=== PATIENT | male | born 1980 | race Caucasian/White ===

== ENCOUNTER 2023-12-11 08:17 | Inpatient (IN) | payer SELFPAY ==
[2023-12-11] MEDS ORDERED: fentaNYL (PF) 50 MCG/ML 2 ML AMP ONE (08:23)
[2023-12-11] MEDS ORDERED: HEPARIN SODIUM 1,000 UN/ML (10ML VL) ONE (08:23)
--- NOTE | 2023-12-11 08:30 | ED ---
Chest Pain HPI - General Stated Complaint: Stemi Source: RN notes reviewed, old records reviewed Mode of arrival: ambulatory Limitations: no limitations - History of Present Illness Initial Comments: This is a 43-year-old male to the ER for evaluation patient [facility] for evaluation of chest pain. Patient had chest pain last night again today with severe chest pain anterior chest pain he had left-sided evaluate reflex today it feels like heaviness and pressure. Patient does smoke, history of high blood pressure without diabetes. Patient's pain is persistent here in the emergency department but improved from when it initially onset MD Complaint: chest pain, other (Dyspnea) -: days(s) Onset: during rest, during exertion Pain Location: substernal, left chest Pain Radiation: LUE, jaw/teeth Severity: moderate Severity scale (1-10): 4 Quality: tightness Consistency: constant Improves With: nothing Worsens With: nothing Anginal Symptoms: sense of impending doom Other Symptoms: palpitations Treatments Prior to Arrival: none - Related Data Home Medications Medication Instructions Recorded Confirmed Magnesium(Unknown Dose) 2 cap PO HS 12/11/23 12/11/23 Previous Rx's Medication Instructions Recorded Aspirin 81 mg PO DAILY #90 tab 12/13/23 Atorvastatin [Lipitor] 80 mg PO HS #90 tab 12/13/23 Metoprolol Tartrate [Lopressor] 25 mg PO BID #120 tab 12/13/23 Ticagrelor [Brilinta] 90 mg PO BID #120 tab 12/13/23 Allergies Allergy/AdvReac Type Severity Reaction Status Date / Time No Known Allergies Allergy Verified 12/11/23 12:29 Review of Systems ROS Statement: Those systems with pertinent positive or pertinent negative responses have been documented in the HPI. ROS Other: All systems not noted in ROS Statement are negative. EKG Findings - EKG Comments: EKG Findings:: EKG is sinus bradycardia 49 RI 136 QRS [address] elevation in 3 and aVF - EKG Results: EKG: interpreted by ERMD General Exam General appearance: alert, in no apparent distress, anxious Head exam: Present: atraumatic, normocephalic, normal inspection Eye exam: Present: normal appearance, PERRL, EOMI. Absent: scleral icterus, conjunctival injection, periorbital swelling ENT exam: Present: normal exam, mucous membranes moist Neck exam: Present: normal inspection. Absent: tenderness, meningismus, lymphadenopathy Respiratory exam: Present: normal lung sounds bilaterally. Absent: respiratory distress, wheezes, rales, rhonchi, stridor Cardiovascular Exam: Present: normal rhythm, bradycardia, normal heart sounds. Absent: systolic murmur, diastolic murmur, rubs, gallop, clicks GI/Abdominal exam: Present: soft, normal bowel sounds. Absent: distended, tenderness, guarding, rebound, rigid Extremities exam: Present: normal inspection, full ROM, normal capillary refill. Absent: tenderness, pedal edema, joint swelling, calf tenderness Back exam: Present: normal inspection Neurological exam: Present: alert, oriented X3, CN II-XII intact Psychiatric exam: Present: normal affect, normal mood Skin exam: Present: warm, dry, intact, normal color. Absent: rash Course - Reevaluation(s) Reevaluation #1: 12/11/23 08:28 Medical records reviewed 12/11/23 08:28 STEMI alert was paged prehospital Reevaluation #2: 12/11/23 08:28 Patient symptoms improved Reevaluation #3: 12/11/23 08:28 Patient informed of results and questions answered Reevaluation #4: Was pt. sent in by a medical professional or institution (, PA, MANAGER TAX, urgent care, hospital, or long term...) When possible be specific @ -no Did you speak to anyone other than the patient for history (EMS, parent, family, police, friend...)? What history was obtained from this source @ -no Did you review nursing and triage notes (agree or disagree)? Why? @ -agree Are old charts reviewed (outside hosp., previous admission, EMS record, old EKG, old radiological studies, urgent care reports/EKG's, long term records)? Report findings @ -yes Differential Diagnosis (chest pain, altered mental status, abdominal pain women, abdominal pain men, vaginal bleeding, weakness, fever, dyspnea, syncope, headache, dizziness, GI bleed, back pain, seizure, CVA, palpatations, mental health, musculoskeletal)? @ -prior EKG interpreted by me (3pts min.). @ -yes X-rays interpreted by me (1pt min.). @ -yes negative for acute disease CT interpreted by me (1pt min.). @ -no U/S interpreted by me (1pt. min.). @ -no What testing was considered but not performed or refused? (CT, X-rays, U/S, labs)? Why? @ -none What meds were considered but not given or refused? Why? @ -none Did you discuss the management of the patient with other professionals (professionals i.e. , PA, MANAGER TAX, lab, RT, psych nurse, social welfare administrator, watch repair person, teacher, motorcycle police officer, rehabilitation case coordinator)? Give summary @ -no Was smoking cessation discussed for >3mins.? @ -no Were there social determinants of health that impacted care today? How? (Home lessness, low income, unemployed, alcoholism, drug addiction, transportation, low edu. Level, literacy, decrease access to med. care, [place], rehab)? @ -none Was there de-escalation of care discussed even if they declined (Discuss DNR or withdrawal of care, Hospice)? DNR status @ -no What co-morbidities impacted this encounter? (DM, HTN, Smoking, COPD, CAD, Cancer, CVA, ARF, Chemo, Hep., AIDS, mental health diagnosis, sleep apnea, morbid obesity)? @ -none Was patient admitted / discharged? Hospital course, mention meds given and route, prescriptions, significant lab abnormalities, going to OR and other pertinent info. @ - [address] elevation LA, patient had chest pain starting last night to his chest and jaw, recurrent chest pain today with ST changes on his EKG will admit to the Associate Store Manager for cardiology to see Admitted Was critical care preformed (if so, how long)? @ -yes31 Undiagnosed new problem with uncertain prognosis? @ -no Drug Therapy requiring intensive monitoring for toxicity (Heparin, Nitro, Insulin, Cardizem)? @ -no Were any procedures done? @ -no Diagnosis/symptom? @ -STEMI Acute, or Chronic, or Acute on Chronic? @ -Acute Uncomplicated (without systemic symptoms) or Complicated (systemic symptoms)? @ -Complicated Side effects of treatment? @ -no Exacerbation, Progression, or Severe Exacerbation? @ -exacerbation Poses a threat to life or bodily function? How? (Chest pain, USA, LA, pneumonia, PE, COPD, DKA, ARF, appy, cholecystitis, CVA, Diverticulitis, Homicidal, Suicidal, threat to staff... and all critical care pts) @ -yes with STEMI Reevaluation #5: Differential Chest Pain: Stable Angina, Unstable Angina, STEMI, NSTEMI Aortic Dissection, Pneumothorax, Musculoskeletal, Esophageal Spasm GERD, Cholecystitis, Pancreatitis, Zoster, this is not meant to be an all-inclusive list. - Consultations Consultation #1: Dr. Butler is at bedside evaluating patient Consultation #2: Spoke with sound who will admit this patient Chest Pain MDM - MDM [address] elevation LA, patient had chest pain starting last night to his chest and jaw, recurrent chest pain today with ST changes on his EKG will admit to the Associate Store Manager for cardiology to see Critical Care Time Critical Care Time: Yes Total Critical Care Time: 31 Disposition Clinical Impression: STEMI (ST elevation myocardial infarction) Disposition: ADMITTED IP TO THIS HOSP Condition: Critical Is patient prescribed a controlled substance at d/c from ED?: No Time of Disposition: 08:45
[2023-12-11] MEDS: HEPARIN SODIUM 1,000 UN/ML (10ML VL) IV ONE (08:31)
--- NOTE | 2023-12-11 08:39 | XR ---
EXAMINATION TYPE: XR chest 1V portable DATE OF EXAM: 12/11/2023 Comparison: None Clinical History: 43-year-old male with chest pain Findings: The heart appears mildly enlarged. This may in part relate to large body habitus and magnification fr om AP technique. No consolidation or pleural effusion. Impression: Possible mild cardiomegaly versus appearance due to magnification related to AP technique and body parham bitus. Clinically correlate. Otherwise, no acute process seen.
[2023-12-11] MEDS: LIDOCAINE 1% INJ 10MG/ML (20 ML MDV) SQ ONE (08:51)
[2023-12-11] MEDS: SODIUM CHLORIDE 0.9% 1,000 ML IV ONE (08:54)
[2023-12-11] MEDS: MIDAZOLAM 2 MG/2 ML VIAL IVP ONE (08:55)
[2023-12-11] MEDS: fentaNYL (PF) 50 MCG/ML 2 ML AMP IVP ONE (08:55)
[2023-12-11] MEDS: VERAPAMIL SYRINGE (5 MG/10 ML) INTRAARTER ONE (08:56)
[2023-12-11] MEDS: HEPARIN SODIUM 1,000 UN/ML (10ML VL) IVP ONE (09:00)
[2023-12-11] MEDS ORDERED: METOPROLOL TARTRATE 25 MG TAB PO SCH (09:00)
[2023-12-11] MEDS ORDERED: ATORVASTATIN 80 MG TAB PO SCH (09:00)
[2023-12-11] MEDS ORDERED: TICAGRELOR 90 MG TAB ONE (09:04)
[2023-12-11 09:06] LABS: Basophils % (A) 0 %; Eosinophils # (A) 0.1 k/uL (0-0.7); Eosinophils % (A) 1 %; HCT 43.2 % (39.0-53.0); HGB 14.3 gm/dL (13.0-17.5); Lymphocytes # (A) 0.9 k/uL (1.0-4.8); Lymphocytes % (A) 5 %; MCH 29.1 pg (25.0-35.0); Mean Platelet Volume 7.9; Monocytes # (A) 0.6 k/uL (0-1.0); Monocytes % (A) 3 %; Neutrophils # (A) 17.1 k/uL (1.3-7.7); Neutrophils % (A) 91 %; Platelet Count 373 k/uL (150-450); RBC 4.91 m/uL (4.30-5.90); RDW 14.2 % (11.5-15.5); WBC 18.9 k/uL (3.8-10.6)
[2023-12-11] MEDS: TICAGRELOR 90 MG TAB PO ONE (09:07)
[2023-12-11 09:12] LABS: INR 0.9 (<1.2); Partial Thromboplastin Time 24.6 sec (22.0-30.0); Prothrombin Time 10.5 sec (10.0-12.5)
[2023-12-11 09:18] LABS: ALT 57 U/L (4-49); AST 109 U/L (17-59); African American GFR (CKD) >90 (>60 ml/min/1.73 sqM); Albumin 4.7 g/dL (3.5-5.0); Alkaline Phosphatase 66 U/L (38-126); Anion Gap 12 mmol/L; Blood Urea Nitrogen 12 mg/dL (9-20); Calcium 9.5 mg/dL (8.4-10.2); Carbon Dioxide 20 mmol/L (22-30); Chloride 102 mmol/L (98-107); Glucose 138 mg/dL (74-99); Magnesium 1.7 mg/dL (1.6-2.3); Non-African American GFR(CKD) >90 (>60 ml/min/1.73 sqM); Phosphorus 3.7 mg/dL (2.5-4.5); Potassium 4.8 mmol/L (3.5-5.1); Sodium 134 mmol/L (137-145); Total Bilirubin 0.6 mg/dL (0.2-1.3)
[2023-12-11] MEDS ORDERED: niCARdipine 25 MG/10 ML VIAL ONE (09:23)
[2023-12-11 09:26] LABS: NT-Pro-B-Type Natriuretic Pept 201 pg/mL
[2023-12-11] MEDS: PHENYLEPHRINE-0.9% NACL SYG 1,000 MCG/10 ML SYRINGE IVP ONE (09:27)
[2023-12-11] MEDS: niCARdipine Syringe (1,000 mcg/10 mL) INTRACORON ONE (09:28)
[2023-12-11] MEDS: IOPAMIDOL-370 100ML BTL INJ ONE (09:29)
[2023-12-11] MEDS ORDERED: RX INFO: IV CONTRAST WAS GIVEN 1 EACH MISC MISCELLANE PRN (09:33)
[2023-12-11] MEDS ORDERED: ATROPINE SULFATE 0.1 MG/ML 10ML SYRINGE IV PRN (09:33)
[2023-12-11] MEDS ORDERED: ZOLPIDEM 5 MG TAB PO PRN (09:33)
[2023-12-11] MEDS ORDERED: MAG HYDROX/AL HYDROX/SIMETH 30 ML CUP PO PRN (09:33)
[2023-12-11] MEDS ORDERED: NITROGLYCERIN SL TABS 0.4 MG TAB SUBLINGUAL PRN (09:33)
--- NOTE | 2023-12-11 09:40 | P.PCN ---
Date of Procedure: 12/11/23 Operative Findings: CARDIAC CATHETERIZATION AND PERCUTANEOUS CORONARY INTERVENTION PERFORMING PHYSICIAN: Barry Ayoub MD, [facility] PROCEDURE PERFORMED: 1. Selective right and left coronary angiogram 2. Left heart catheterization 3. Successful stenting of distal RCA using 3.5 x 28 mm Xience CHIP with an ex cellent angiographic results adjunctive use of intravascular imaging and aspiration thrombectomy 4. Ultrasound-guided access of the right radial artery INDICATION: Acute inferior ST elevation myocardial infarction COMPLICATION: None APPROACH: Right radial artery LEVEL OF SEDATION: Moderate with the sedation time off 38 minutes PROCEDURE DESCRIPTION: After obtaining informed consent the patient was brought to the cardiac Rat Culturist. The right radial artery was cannulated using micropuncture technique under ultrasound guidance and micropuncture wire passed easily then I placed a 6 [place] 11 cm sheath at the right radial artery. I gave the patient 2 mg of verapamil intra-arterial and 5000's of heparin intravenous. Selective right and left coronary angiogram performed using JR4 and JL 3.5 catheter. Left heart catheterization was performed using the JR4 catheter which crossed the aortic valve. After that I did intervene on the RCA. Anticoagulation was initiated and continued using heparin with continuous ACT monitoring. Subsequently I did engage using JR4 guiding catheter. I did wired using a run-through wire. After that I did aspiration thrombectomy with removal of red thrombus. Intravascular ultrasound was performed and showed a distal RCA diameter around 3 mm and proximal to the lesion was about 5 mm. I did predilatation using 3 mm balloon before I deployed 3.5 x 28 mm stent which was postdilated proximally using 4.5 mm balloon and in the mid using 4 mm balloon and distally using 4 mm balloon as well. Final angiogram showed excellent angiographic results with HUNG-3 flow and the procedure was completed with no complication SELECTIVE CORONARY ANGIOGRAM: The right coronary artery: Large-caliber vessel and a dominant vessel and appears to be occluded distally with a large thrombus burden Left main: Is angiographically normal The left circumflex: Large-caliber vessel nondominant vessel appears to be normal and gives rise into first and second obtuse marginal branches The left anterior descending artery: Large-caliber vessel. The mid LAD has a lesion appears to be in the range of 40%. The LAD gives rise into multiple diagonal branches appear to be normal HEMODYNAMICS: The LVEDP was 24 mmHg with no significant gradient across aortic valve CONCLUSION: Occluded distal RCA. I performed successful PCI of the RCA Intermediate disease involving the mid LAD Elevated left-sided filling pressure POSTPROCEDURE MANAGEMENT: 1. Dual antiplatelet therapy using aspirin and Brilinta for 12 month 2. Aggressive cholesterol control 3. Follow-up with the patient
--- NOTE | 2023-12-11 09:42 | P.CRDCN ---
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 He has been experiencing discomfort since last night. The discomfort was a pressure/burning sensation in the middle of the chest with some radiation to the neck. He was brought to the emergency department by ambulance after an EKG was performed and showed inferior ST elevation myocardial infarction and subsequently patient underwent a heart catheterization and was found to have occluded RCA in the distal portion where he underwent PCI of the RCA. The procedure was performed with no complication. The left coronary system has intermediate disease involving the LAD. The p atient will be admitted to the intensive care unit. He has hypertension and dyslipidemia and he is overweight. He was informed in the past that he has coronary artery disease based on heart catheterization was performed in [place] several years ago but no stent was needed at that point because the disease was not significant. The physical examination is remarkable for regular rhythm with a soft systolic murmur and clear breathing sounds bilaterally and no carotid bruit and no edema was noted. Vitals are stable Assessment Inferior STEMI Status post PCI of the RCA Multiple comorbid conditions including obesity and hypertension and dyslipidemia Plan The patient will be admitted to the intensive care unit Dual antiplatelet therapy and high intensity statin Echocardiogram Follow-up with the patient Medications and Allergies Allergies Allergy/AdvReac Type Severity Reaction Status Date / Time No Known Allergies Allergy Verified 12/11/23 08:59 Physical Exam Vitals: Vital Signs Temp Pulse Resp BP Pulse Ox 12/11/23 08:58 99.1 F 82 18 116/80 98 Intake and Output 12/10/23 12/11/23 12/11/23 22:59 06:59 14:59 Intake Total 225 Balance 225 Intake: IV 225 Results 12/11/23 08:45 12/11/23 08:45 Cardiac Enzymes 12/11/23 12/11/23 Range/Units 08:45 08:45 AST 109 H (17-59) U/L Troponin I 5.420 H* (0.000-0.034) ng/mL Coagulation 12/11/23 Range/Units 08:45 PT 10.5 (10.0-12.5) sec APTT 24.6 (22.0-30.0) sec CBC 12/11/23 Range/Units 08:45 WBC 18.9 H (3.8-10.6) k/uL RBC 4.91 (4.30-5.90) m/uL Hgb 14.3 (13.0-17.5) gm/dL Hct 43.2 (39.0-53.0) % Plt Count 373 (150-450) k/uL Comprehensive Metabolic Panel 12/11/23 Range/Units 08:45 Sodium 134 L (137-145) mmol/L Potassium 4.8 (3.5-5.1) mmol/L Chloride 102 (98-107) mmol/L Carbon Dioxide 20 L (22-30) mmol/L BUN 12 (9-20) mg/dL Creatinine 0.66 (0.66-1.25) mg/dL Glucose 138 H (74-99) mg/dL Calcium 9.5 (8.4-10.2) mg/dL AST 109 H (17-59) U/L ALT 57 H (4-49) U/L Alkaline Phosphatase 66 (38-126) U/L Total Protein 7.0 (6.3-8.2) g/dL Albumin 4.7 (3.5-5.0) g/dL Current Medications Generic Name Dose Route Start Last Admin Trade Name Freq PRN Reason Stop Dose Admin Al Hydroxide/Mg Hydroxide 30 ml 12/11/23 09:33 Mag Hydrox/Al Hydrox/Simeth 30 Ml Cup PO Q4HR PRN Heartburn Aspirin 81 mg 12/12/23 09:00 Aspirin 81 Mg PO DAILY [facility] Atorvastatin Calcium 80 mg 12/11/23 21:00 Atorvastatin 80 Mg Tab PO HS [facility] Atropine Sulfate 0.5 mg 12/11/23 09:33 Atropine Sulfate 0.1 Mg/Ml 10ml Syringe IV ONCE PRN Symptomatic Bradycardia Heparin Sodium/Sodium Chloride 250 mls @ 0 mls/hr 12/11/23 08:30 25,000 unit/ Sodium Chloride IV .Q0M [facility] Protocol 12 UNITS/KG/HR Sodium Chloride 1,000 ml/ IV 1,000 mls @ 75 mls/hr 12/11/23 09:45 Solution IV 12/11/23 14:46 .[id number] [facility] Metoprolol Tartrate 25 mg 12/11/23 21:00 Metoprolol Tartrate 25 Mg Tab PO BID [facility] Miscellaneous Information 1 each 12/11/23 09:33 Rx Info: Iv Contrast Was Given 1 Each Misc MISCELLANE 12/13/23 09:34 DAILY PRN Per Protocol Nitroglycerin 0.4 mg 12/11/23 09:33 Nitroglycerin Sl Tabs 0.4 Mg Tab SUBLINGUAL Q5M PRN Chest Pain Ticagrelor 90 mg 12/11/23 21:00 Ticagrelor 90 Mg Tab PO BID [facility] Protocol Zolpidem Tartrate 5 mg 12/11/23 09:33 Zolpidem 5 Mg Tab PO HS PRN Insomnia Intake and Output 12/10/23 12/11/23 12/11/23 22:59 06:59 14:59 Intake Total 225 Balance 225 Intake: IV 225 12/11/23 08:45 12/11/23 08:45
[2023-12-11] MEDS: SODIUM CHLORIDE 0.9% 1,000 ML in EMPTY BAG 1 BAG IV SCH (10:00)
[2023-12-11 10:12] LABS: Glucose,Whole Blood 114 mg/dL (70-110)
[2023-12-11] MEDS: SODIUM CHLORIDE 0.9% 1,000 ML IV STA (11:27)
[2023-12-11] MEDS: HEPARIN SOD,PORK IN 0.45% NACL 25,000 UNIT in 0.45% NACL 1 250ML.BAG IV SCH (14:26)
[2023-12-11] MEDS: ONDANSETRON 4 MG/2 ML VIAL IVP PRN (14:30)
--- NOTE | 2023-12-11 15:19 | P.HPIM ---
History of Present Illness H&P Date: 12/11/23 Patient is a 43-year-old male with history of nonobstructive CAD, dyslipidemia presenting with chest pain. Patient arrived as a code STEMI. He claims that he started having reflux/burning sensation last night, and it persisted this morning. He also has shortness of breath associated with that. He also noted some radiating pain down to his fingertips bilaterally. He denies any palpita tions. Has some nausea. All of his symptoms have resolved since heart cath. Continues to smoke more than 1 pack/day. Occasional alcohol use, denies any illicit drug use. In the ED, vital signs within normal limits. EKG on presentation independently interpreted, showed ST elevation in inferior and lateral leads, T wave inversions in inferior leads. Chest x-ray independently interpreted, no o pacities noted. During catheterization, found to have occluded distal RCA with successful PCI and stent placement. Intermediate disease involving mid LAD also noted, elevated left-sided filling pressures noted. Patient currently recovering in medical ICU. Pertinent positives and negatives as discussed in HPI, a complete review of systems was performed and all other systems are negative. Patient seen and examined at bedside. Vital signs reviewed General: nontoxic, no distress, appears at stated age Derm: warm, dry Head: atraumatic, normocephalic, symmetric Eyes: EOMI, no lid lag, anicteric sclera, pupils equal round reactive to light ENT: Nose and ears atraumatic Neck: No thyromegaly, supple Mouth: no lip lesion, mucus membranes moist Cardiovascular: S1S2 reg, no murmur, no edema Lungs: clear to auscultation bilateral, no rhonchi, no rales, no wheeze, no accessory muscle use Abdominal: soft, nontender to palpation, no guarding, no appreciable organomegaly Ext: no gross muscle atrophy, muscle strength muscle strength 5 out of 5 in all 4 extremities, no contractures Neuro: CN II-XII grossly intact Psych: Alert, oriented, appropriate affect Assessment/Plan: Acute inferior STEMI status post PCI and stent to distal RCA History of dyslipidemia -Cardiology note reviewed, aspirin 81 mg, Brilinta 90 mg twice daily, atorvastatin 80 mg daily -Also started on metoprolol 25 twice daily -Echocardiogram pending -Continue telemetry monitoring Nicotine dependence -Counseled regarding smoking cessation The patient is admitted with an anticipated greater than 2 midnight stay as inpatient status for evaluation of STEMI. CODE STATUS: Full code DVT prophylaxis: Heparin Anticipated discharge date: Pending clinical course Anticipated discharge place: Pending clinical course A total of 55 minutes was spent on the care of this complex patient more than 50% of the time was spent in counseling and care coordination. Medications and Allergies Home Medications Medication Instructions Recorded Confirmed Type Aspirin EC [Ecotrin Low Dose] 81 mg PO HS 12/11/23 12/11/23 History Atorvastatin Calcium [Lipitor] 40 mg PO HS 12/11/23 12/11/23 History Magnesium(Unknown Dose) 2 cap PO HS 12/11/23 12/11/23 History Allergies Allergy/AdvReac Type Severity Reaction Status Date / Time No Known Allergies Allergy Verified 12/11/23 12:29 Physical Exam Vitals: Vital Signs Temp Pulse Resp BP Pulse Ox 12/11/23 14:30 54 L 13 130/73 97 12/11/23 14:15 53 L 24 97 12/11/23 14:00 54 L 16 118/89 95 12/11/23 13:45 63 12 96 12/11/23 13:30 53 L 14 96 12/11/23 13:15 55 L 12 97 12/11/23 13:00 55 L 12 122/66 97 12/11/23 12:45 53 L 16 95 12/11/23 12:30 55 L 14 96 12/11/23 12:15 54 L 12 95 12/11/23 12:00 98.5 F 56 L 14 118/65 93 L 12/11/23 11:45 24 99 12/11/23 11:30 53 L 16 96 12/11/23 11:15 58 L 17 94 L 12/11/23 11:00 60 24 88/74 96 12/11/23 10:45 51 L 23 97 12/11/23 10:30 57 L 20 96 12/11/23 10:15 53 L 14 96 12/11/23 10:04 57 L 14 95 12/11/23 08:58 99.1 F 82 18 116/80 98 Intake and Output 12/10/23 12/11/23 12/11/23 22:59 06:59 14:59 Intake Total 225 Balance 225 Intake: IV 225 Other: Voiding Method Urinal Weight 127.886 kg Results CBC & Chem 7: 12/11/23 08:45 12/11/23 08:45 Labs: Abnormal Lab Results - Last 24 Hours (Table) 12/11/23 12/11/23 12/11/23 Range/Units 08:45 08:45 08:45 WBC 18.9 H (3.8-10.6) k/uL Neutrophils # 17.1 H (1.3-7.7) k/uL Lymphocytes # 0.9 L (1.0-4.8) k/uL APTT (22.0-30.0) sec Sodium 134 L (137-145) mmol/L Carbon Dioxide 20 L (22-30) mmol/L Glucose 138 H (74-99) mg/dL POC Glucose (mg/dL) (70-110) mg/dL AST 109 H (17-59) U/L ALT 57 H (4-49) U/L Troponin I 5.420 H* (0.000-0.034) ng/mL 12/11/23 12/11/23 12/11/23 Range/Units 10:10 10:48 10:48 WBC (3.8-10.6) k/uL Neutrophils # (1.3-7.7) k/uL Lymphocytes # (1.0-4.8) k/uL APTT 47.2 H (22.0-30.0) sec Sodium (137-145) mmol/L Carbon Dioxide (22-30) mmol/L Glucose (74-99) mg/dL POC Glucose (mg/dL) 114 H (70-110) mg/dL AST (17-59) U/L ALT (4-49) U/L Troponin I 120.000 H* (0.000-0.034) ng/mL
[2023-12-11] MEDS: HEPARIN SODIUM,PORCINE 5,000 UNIT/ML 1 ML VIAL SQ SCH (16:03)
--- NOTE | 2023-12-11 17:48 | CA ---
Transthoracic Echo Report Name: Cachorro Gomes Age: 43 Gender: M : 1980 Exam Date: 12/11/2023 13:15 Exam Location: [place] [facility] Ht (in): 68 Wt (lb): 282 Ordering Physician: Barry Ayoub MD ([id number]) Attending/Referring Phys: Twister Doffer Marcella Cuadra RDCS Procedure CPT: Indications: ACS Cardiac Hx: Technical Quality: Technically difficult study Contrast 1: Definity Total Dose (mL): 2 Contrast 2: Total Dose (mL): MEASUREMENTS (Male / Female) Normal Values 2D ECHO LV Diastolic Diameter PLAX 4.6 cm 4.2 - 5.9 / 3.9 - 5.3 cm LV Systolic Diameter PLAX 3.6 cm IVS Diastolic Thickness 0.9 cm 0.6 - 1.0 / 0.6 - 0.9 cm LVPW Diastolic Thickness 1.1 cm 0.6 - 1.0 / 0.6 - 0.9 cm LV Relative Wall Thickness 0.4 LVOT Diameter 1.9 cm LV Diastolic Volume MOD BP 153.8 cm??? 67 - 155 / 56 - 104 cm??? LV Systolic Volume MOD BP 60.4 cm??? 22 - 58 / 19 - 49 cm??? LV Ejection Fraction MOD BP 60.7 % >= 55 % LV Cardiac Index MOD BP 2094.2 cm???/min???m??? LV Diastolic Volume MOD 4C 160.6 cm??? LV Systolic Volume MOD 4C 64.7 cm??? LV Ejection Fraction MOD 4C 59.7 % LV Cardiac Index MOD 4C 2151.9 cm???/min???m??? LV Diastolic Length 4C 9.9 cm LV Systolic Length 4C 7.9 cm LV Diastolic Volume MOD 2C 137.6 cm??? LV Systolic Volume MOD 2C 54.2 cm??? LV Ejection Fraction MOD 2C 60.6 % LV Cardiac Index MOD 2C 1870.9 cm???/min???m??? LV Diastolic Length 2C 9.2 cm LV Systolic Length 2C 7.5 cm LA Volume 50.7 cm??? 18 - 58 / 22 - 52 cm??? LA Volume Index 20.0 cm???/m??? 16 - 28 cm???/m??? DOPPLER AV Peak Velocity 157.8 cm/s AV Peak Gradient 10.0 mmHg AV Mean Velocity 109.5 cm/s AV Mean Gradient 5.3 mmHg AV Velocity Time Integral 28.3 cm LVOT Peak Velocity 111.6 cm/s LVOT Peak Gradient 5.0 mmHg LVOT Velocity Time Integral 21.4 cm LVOT Stroke Volume 63.2 cm??? LVOT Stroke Volume Index 26.7 ml/m??? LVOT Cardiac Index 1417.6 cm???/min???m??? AV Area Cont Eq vti 2.2 cm??? AV Area Cont Eq pk 2.1 cm??? MV Area PHT 4.4 cm??? Mitral E Point Velocity 95.6 cm/s Mitral A Point Velocity 63.2 cm/s Mitral E to A Ratio 1.5 MV Deceleration Time 172.9 ms PV Peak Velocity 124.9 cm/s PV Peak Gradient 6.2 mmHg FINDINGS Left Ventricle Left ventricular ejection fraction is estimated at 55-60 %. Mildly increased left ventricular systolic volume. Left ventricular wall thickness normal. Apical septal, inferior, and mid inferior hypokinetic. Right Ventricle Normal right ventricular size and function. Unable to estimate the right ventricular systolic pressure. Right Atrium Normal right atrial size. Left Atrium Normal left atrial size. Mitral Valve Structurally normal mitral valve. No evidence for mitral valve prolapse. No mitral stenosis. Trace mitral regurgitation. Aortic Valve Aortic valve not well visualized, presumably trileaflet aortic valve. Tricuspid Valve Structurally normal tricuspid valve. No tricuspid stenosis. Trace tricuspid regurgitation. Pulmonic Valve Structurally normal pulmonic valve. No pulmonic stenosis. No pulmonic regurgitation. Pericardium No pericardial effusion. Aorta Aortic annulus normal. Ascending aorta not well visualized. CONCLUSIONS Preserved LV function Hypokinesis involving the apical septum and basal and mid inferior wall Previewed by: Dr. Chalo Rascon MD (Electronically Signed) Final Date: 11 December 2023 17:47
[2023-12-11] MEDS: NICOTINE 21MG/24HR PATCH TRANSDERM SCH (19:09)
[2023-12-11] MEDS: ATORVASTATIN 80 MG TAB PO SCH (21:09)
[2023-12-11] MEDS: METOPROLOL TARTRATE 25 MG TAB PO SCH (21:09)
[2023-12-11] MEDS: TICAGRELOR 90 MG TAB PO SCH (21:09)
[2023-12-12 06:55] LABS: Basophils % (A) 0 %; Eosinophils # (A) 0.1 k/uL (0-0.7); Eosinophils % (A) 1 %; HCT 38.5 % (39.0-53.0); HGB 12.3 gm/dL (13.0-17.5); Lymphocytes # (A) 1.5 k/uL (1.0-4.8); Lymphocytes % (A) 16 %; MCH 28.9 pg (25.0-35.0); MCV 90.3 fL (80.0-100.0); Mean Platelet Volume 7.8; Monocytes # (A) 0.8 k/uL (0-1.0); Monocytes % (A) 9 %; Neutrophils # (A) 7.1 k/uL (1.3-7.7); Neutrophils % (A) 74 %; Platelet Count 276 k/uL (150-450); RBC 4.26 m/uL (4.30-5.90); WBC 9.6 k/uL (3.8-10.6)
[2023-12-12 07:04] LABS: African American GFR (CKD) >90 (>60 ml/min/1.73 sqM); Anion Gap 2 mmol/L; Blood Urea Nitrogen 10 mg/dL (9-20); Calcium 8.7 mg/dL (8.4-10.2); Carbon Dioxide 25 mmol/L (22-30); Chloride 110 mmol/L (98-107); Glucose 115 mg/dL (74-99); Magnesium 2.2 mg/dL (1.6-2.3); Non-African American GFR(CKD) >90 (>60 ml/min/1.73 sqM); Potassium 4.2 mmol/L (3.5-5.1); Sodium 137 mmol/L (137-145)
[2023-12-12] MEDS: ASPIRIN 81 MG PO SCH (08:34)
[2023-12-12] MEDS ORDERED: ASPIRIN 325 MG TAB PO SCH (09:00)
--- NOTE | 2023-12-12 13:12 | P.PN ---
Subjective Progress Note Date: 12/12/23 Principal diagnosis: Inferior STEMI The patient is a pleasant 43-year-old gentleman with a past medical history significant for overweight and hypertension and dyslipidemia who was admitted to the hospital with chest discomfort and was diagnosed with inferior STEMI. He underwent an emergent heart catheterization and PCI of the RCA December 12, 2023 The patient was seen and evaluated this morning. He is asymptomatic and hemodynamically stable. The echo shows normal LV systolic function. He is on dual antiplatelet therapy along with high intensity statin. From the cardiovas cular standpoint of view, the patient can be transferred to 3 for possible discharge in the next 24 hours. The examination is remarkable for stable vital signs with regular rate and rhythm and clear breathing sounds bilaterally and no edema was noted Assessment Acute inferior STEMI Status post PCI of the RCA Multiple comorbid conditions Plan Continue the current medical regimen Continue dual antiplatelet therapy and high intensity statin Transfer to [facility]. Discharge in next 24 to 48 hours Objective - Vital Signs Vital signs: Vital Signs Temp 97.6 F 12/12/23 08:00 Pulse 63 12/12/23 10:00 Resp 25 H 12/12/23 10:00 BP 117/62 12/12/23 10:00 Pulse Ox 96 12/12/23 10:00 FiO2 Intake & Output 12/11/23 12/12/23 12/12/23 18:59 06:59 18:59 Intake Total 825 750 472 Output Total 1725 2100 0 Balance -900 -1350 472 Weight 127.886 kg 126.8 kg Intake: IV 225 Intake, IV Titration 600 300 Amount Sodium Chloride 0.9% 1, 600 300 000 ml In Empty Bag 1 bag @ 75 mls/hr IV .[id number] CARLOS A Rx#:[id number] Oral 450 472 Output: Urine 1725 2100 0 Other: Voiding Method Urinal Urinal Urinal # Voids 1 1 # Bowel Movements 0 1 - Labs CBC & Chem 7: 12/12/23 06:17 12/12/23 06:17 Labs: Abnormal Lab Results - Last 24 Hours (Table) 12/12/23 12/12/23 Range/Units 06:17 06:17 RBC 4.26 L (4.30-5.90) m/uL Hgb 12.3 L (13.0-17.5) gm/dL Hct 38.5 L (39.0-53.0) % Chloride 110 H (98-107) mmol/L Glucose 115 H (74-99) mg/dL
--- NOTE | 2023-12-12 14:00 | P.PN ---
Subjective Progress Note Date: 12/12/23 Hospital Course: 43-year-old male with history of nonobstructive CAD, dyslipidemia presenting w ith chest pain. In the ED, vital signs within normal limits. EKG on presentation independently interpreted, showed ST elevation in inferior and lateral leads, T wave inversions in inferior leads. Chest x-ray independently interpreted, no opacities noted. During catheterization, found to have occluded distal RCA with successful PCI and stent placement. Intermediate disease involving mid LAD also noted, elevated left-sided filling pressures noted. Patient currently recovering in medical ICU. Echocardiogram showed LVEF 55 to 60%, hypokinesis involving apical, basal, mid inferior wall. Likely discharge within the next 24 to 48 hours. Subjective: Patient seen and examined at bedside. No acute events overnight. Denies any further chest pain. Pertinent positives and negatives as discussed above, a complete review of systems was performed and all other systems are negative. Vitals Signs Reviewed. General: Nontoxic, no distress, appears at stated age, morbidly obese Derm: Warm, dry Head: Atraumatic, normocephalic, symmetric Eyes: EOMI, no lid lag, anicteric sclera Mouth: No lip lesion, mucus membranes moist Cardiovascular: S1S2 reg, no murmur Lungs: CTA bilateral, no rhonchi, no rales, no accessory muscle use Abdominal: Soft, nontender to palpation, no guarding, no appreciable organomegaly Ext: No gross muscle atrophy, no edema, no contractures Neuro: CN II-XI grossly intact, no focal neuro deficits Psych: Alert, oriented, appropriate affect Data Reviewed Today: Pertinent Labs: Hemoglobin 12.3, WBC 9.6, creatinine 0.84, troponin elevated to 120, magnesium 2.2 Imaging: EKG independently interpreted from this morning, shows Q waves in inferior leads. Sinus bradycardia. Assessment and Plan: Acute inferior STEMI status post PCI and stent to distal RCA History of dyslipidemia -Cardiology note reviewed, aspirin 81 mg, Brilinta 90 mg twice daily, atorvastatin 80 mg daily, metoprolol 25 twice daily -Likely discharge within the next 24 to 48 hours -Planning for transfer out of the ICU today -Continue telemetry monitoring Nicotine dependence -Counseled regarding smoking cessation DVT ppx: Heparin subcu Code status: Full code Anticipated discharge place: Pending clinical course Anticipated discharge time: Pending clinical course Objective - Vital Signs Vital signs: Vital Signs Temp 97.7 F 12/12/23 12:00 Pulse 69 12/12/23 12:00 Resp 25 H 12/12/23 12:00 BP 114/81 12/12/23 12:00 Pulse Ox 94 L 12/12/23 12:00 FiO2 Intake & Output 12/11/23 12/12/23 12/12/23 18:59 06:59 18:59 Intake Total 825 750 972 Output Total 1725 2100 0 Balance -900 -1350 972 Weight 127.886 kg 126.8 kg Intake: IV 225 Intake, IV Titration 600 300 Amount Sodium Chloride 0.9% 1, 600 300 000 ml In Empty Bag 1 bag @ 75 mls/hr IV .[id number] CARLOS A Rx#:[id number] Oral 450 972 Output: Urine 1725 2100 0 Other: Voiding Method Urinal Urinal Urinal # Voids 1 1 # Bowel Movements 0 1 - Labs CBC & Chem 7: 12/12/23 06:17 12/12/23 06:17 Labs: Abnormal Lab Results - Last 24 Hours (Table) 12/12/23 12/12/23 Range/Units 06:17 06:17 RBC 4.26 L (4.30-5.90) m/uL Hgb 12.3 L (13.0-17.5) gm/dL Hct 38.5 L (39.0-53.0) % Chloride 110 H (98-107) mmol/L Glucose 115 H (74-99) mg/dL
[2023-12-12 14:24] VITALS: BMI 42.5
--- NOTE | 2023-12-13 07:04 | P.PN ---
Subjective Progress Note Date: 12/13/23 Principal diagnosis: Inferior STEMI The patient is a pleasant 43-year-old gentleman with a past medical history significant for overweight and hypertension and dyslipidemia who was admitted to the hospital with chest discomfort and was diagnosed with inferior STEMI. He underwent an emergent heart catheterization and PCI of the RCA December 12, 2023 The patient was seen and evaluated this morning. He is asymptomatic and hemodynamically stable. The echo shows normal LV systolic function. He is on dual antiplatelet therapy along with high intensity statin. From the cardiovas cular standpoint of view, the patient can be transferred to [facility] for possible discharge in the next 24 hours. The examination is remarkable for stable vital signs with regular rate and rhythm and clear breathing sounds bilaterally and no edema was noted December 13, 2023 The patient was seen and evaluated this morning. He is asymptomatic and hemodynamically stable. He continues to be on dual antiplatelet therapy along with high intensity statin. From the cardiac standpoint of view, the patient c an be discharged home. The patient is [place] and he was advised to find a phlebotomist lab assistant in [place] to follow-up with him. We are going to give him a copy of the heart catheterization and PCI report to have it with him. The examination is remarkable for stable vital signs with regular rate and rhythm and clear breathing sounds bilaterally and no edema was noted Assessment Acute inferior STEMI Status post PCI of the RCA Multiple comorbid conditions Plan Continue the current medical regimen Continue dual antiplatelet therapy and high intensity statin The patient can be discharged Objective - Vital Signs Vital signs: Vital Signs Temp 98.6 F 12/13/23 04:00 Pulse 58 L 12/13/23 04:00 Resp 18 12/13/23 04:00 BP 114/78 12/13/23 05:00 Pulse Ox 95 12/13/23 04:00 FiO2 Intake & Output 12/12/23 12/13/23 12/13/23 18:59 06:59 18:59 Intake Total 972 Output Total 0 Balance 972 Weight 126.8 kg 127.6 kg Intake: Oral 972 Output: Urine 0 Other: Voiding Method Urinal Urinal # Voids 3 5 # Bowel Movements 1 - Labs CBC & Chem 7: 12/12/23 06:17 12/12/23 06:17 Labs: Abnormal Lab Results - Last 24 Hours (Table) 12/12/23 Range/Units 06:17 Chloride 110 H (98-107) mmol/L Glucose 115 H (74-99) mg/dL
[2023-12-13 08:44] VITALS: BP 110/56; PULSE 67; RESP 22; TEMP 98.2
--- NOTE | 2023-12-13 11:43 | P.DS ---
Providers Date of admission: 12/11/23 09:30 Expected date of discharge: 12/13/23 Attending physician: Isaac Cartagena MD Consults: 12/11/23 08:23 Consult Physician Urgent Consulting Provider: Barry Ayoub Consult Reason/Comments: stemi Do you want consulting provider notified?: Yes 12/11/23 09:34 Consult Physician Routine Consulting Provider: [facility] Consult Reason/Comments: Post Interventional patient Do you want consulting provider notified?: Already Contacted Primary care physician: Physician Nonstaff Hospital Course: Discharge Diagnosis: Acute inferior STEMI status post PCI and stent to distal RCA Dyslipidemia Nicotine dependence Morbid obesity Hospital Course: 43-year-old male with history of CAD, dyslipidemia presenting with chest pain. In the ED, vital signs within normal limits. EKG on presentation independently interpreted, showed ST elevation in inferior and lateral leads, T wave inversions in inferior leads. Chest x-ray independently interpreted, no opacities noted. During catheterization, found to have occluded distal RCA with successful PCI and stent placement. Intermediate disease involving mid LAD also noted, elevated left-sided filling pressures noted. Patient currently recovering in medical ICU. Echocardiogram showed LVEF 55 to 60%, hypokinesis involving apical, basal, mid inferior wall. 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 Patient seen and examined at bedside. Vital signs reviewed and stable. General: Nontoxic, no distress, appears at stated age, morbidly obese Derm: Warm, dry Head: Atraumatic, normocephalic, symmetric Eyes: EOMI, no lid lag, anicteric sclera Mouth: No lip lesion, mucus membranes moist Cardiovascular: S1S2 reg, no murmur Lungs: CTA bilateral, no rhonchi, no rales, no accessory muscle use Abdominal: Soft, nontender to palpation, no guarding, no appreciable organomegaly Ext: No gross muscle atrophy, no edema, no contractures Neuro: CN II-XI grossly intact, no focal neuro deficits Psych: Alert, oriented, appropriate affect A total of 33 minutes of time were spent preparing this complex discharge summary. Patient was discharged on 12/13/2023 at 901. Patient Condition at Discharge: Stable Plan - Discharge Summary Discharge Rx Participant: Yes New Discharge Prescriptions: New Aspirin 81 mg PO DAILY #90 tab Ticagrelor [Brilinta] 90 mg PO BID #120 tab Atorvastatin [Lipitor] 80 mg PO HS #90 tab Metoprolol Tartrate [Lopressor] 25 mg PO BID #120 tab Continue Magnesium(Unknown Dose) 2 cap PO HS Discontinued Atorvastatin Calcium [Lipitor] 40 mg PO HS Aspirin EC [Ecotrin Low Dose] 81 mg PO HS Discharge Medication List Magnesium(Unknown Dose) 2 cap PO HS 12/11/23 [History] Aspirin 81 mg PO DAILY #90 tab 12/13/23 [Rx] Atorvastatin [Lipitor] 80 mg PO HS #90 tab 12/13/23 [Rx] Metoprolol Tartrate [Lopressor] 25 mg PO BID #120 tab 12/13/23 [Rx] Ticagrelor [Brilinta] 90 mg PO BID #120 tab 12/13/23 [Rx] Follow up Appointment(s)/Referral(s): Nonstaff,Physician [Primary Care Provider] - 1-2 days Patient Instructions/Handouts: Heart Attack (DC), How to Stop Smoking (DC), Heart Healthy Diet (DC) Activity/Diet/Wound Care/Special Instructions: dr ayoub instructed to follow up with reinforcing metal worker and return to work when you are feeling ready. heart healthy diet. no smoking. Discharge Disposition: HOME SELF-CARE
== END 2023-12-13 10:54 | disposition home or self-care (01) | DRG 322 ==
LOC: EC 08:17 → 2SICU 09:30
PROVIDERS: ADMIT Student in an Organized Health Care Education/Training Program; ATTEND Student in an Organized Health Care Education/Training Program
PROC: 4A023N7 Measurement of Cardiac Sampling and Pressure, Left Heart, Percutaneous Approach (ICD-10-PCS; principal; 2023-12-11 08:20)
PROC: 02C03ZZ Extirpation of Matter from Coronary Artery, One Artery, Percutaneous Approach (ICD-10-PCS; principal; 2023-12-11 08:20)
PROC: B2111ZZ Fluoroscopy of Multiple Coronary Arteries using Low Osmolar Contrast (ICD-10-PCS; principal; 2023-12-11 08:20)
PROC: B240ZZ3 Ultrasonography of Single Coronary Artery, Intravascular (ICD-10-PCS; principal; 2023-12-11 08:20)
PROC: 027034Z Dilation of Coronary Artery, One Artery with Drug-eluting Intraluminal Device, Percutaneous Approach (ICD-10-PCS; principal; 2023-12-11 08:20)
DX: I21.19 ST elevation (STEMI) myocardial infarction involving other coronary artery of inferior wall (principal); Z68.41 Body mass index [BMI] 40.0-44.9, adult; E66.01 Morbid (severe) obesity due to excess calories; E78.5 Hyperlipidemia, unspecified; F17.210 Nicotine dependence, cigarettes, uncomplicated; Z71.6 Tobacco abuse counseling; I10 Essential (primary) hypertension; I25.10 Atherosclerotic heart disease of native coronary artery without angina pectoris; Z79.899 Other long term (current) drug therapy; Z28.21 Immunization not carried out because of patient refusal; Z79.82 Long term (current) use of aspirin
CPT/HCPCS: 36415; 71045; 76937; 80048; 80053; 83735; 83880; 84100; 84484; 85025; 85610; 85730; 92978; 93005; 93306; 93458; 96374; 96375; 99291